=== PATIENT | female | born 1975 | race Caucasian/White ===

== ENCOUNTER → 2016-07-27 | Day surgery (SDC) | payer BC ==
[~2016-07-27] VITALS: Ht 152.4 cm; Wt 94.2 kg
[~2016-07-27] MED LIST: *RESP: ALBUTEROL 2.5 MG/3 ML NEB (PRN) PERIprocedural Use ONLY NEB ONE; *diphenhydrAMINE HCL 50 MG/ML VIAL PERIprocedural Use ONLY ONE; *morphine SULFATE 8 MG/ML PERIprocedure ONLY ONE; ALBI1INJ2; ALBUAER3 INH; AMIT1TAB79 PO; BUPIVACAINE HCL PF 0.25% 30 ML VIAL ONE; BUPIVACAINE LIPOSOME PF 1.3% 20 ML VIAL INFIL ONE; DILA4TAB2 PO; DO NOT ADM ANY ANTICOAGULANT DRUGS XX PRN; DULA10IN SQ; ERGO1CAP10 PO; GABA300C5 PO; GELFOAM SIZE 100 ONE; GENTAMICIN SULFATE 80 MG/2 ML VIAL ONE; HUMA100I3; HUMA75IN SQ; IBUP800T23 PO; INSU1INJ5 SQ; INSULIN HUMAN REGULAR 1,000 UNITS/10 ML VIAL SQ PRN; LACTATED RINGER'S 1000 ML INJ 1,000 ML IV ONE; LACTATED RINGER'S 1000 ML IV SCH; LIDOCAINE 1%/EPINEPHrine 1:100,000 SOLN 20 ML VIAL ONE; METF500T PO; METH500T3; METOPROLOL TARTRATE 25 MG TAB PO PRN; MIDAZOLAM HCL 2 MG/2 ML VIAL ONE; MORPHINE SULFATE 4 MG/ML INJ ONE; NEOSTIGMINE 3 MG/3 ML SYR IV ONE; ONDA4TAB7 SL; ONDANSETRON HCL 4 MG/2 ML VIAL IV PUSH ONE; ONDANSETRON HCL 4 MG/2 ML VIAL ONE; PHENYLEPH/NS 1000 MCG/10 ML SYR IV ONE; PROPOFOL 200 MG/20 ML AMP IV ONE; ROBA500T PO; SIMV5TAB3 PO; SODIUM CHLORID 0.9% 500 ML IV SCH; THROMBIN (TOPICAL) 5,000 UNIT VIAL ONE; ceFAZolin 2 GM PREMIX 50 ML ONE; ceFAZolin INJ 1,000 MG VIAL IV ONE; ePHEDrine/NS 25 MG/5 ML SYR IV ONE; fentaNYL CITRATE 250 MCG/5 ML AMP ONE
[2016-07-27 06:55] VITALS: BP 123/86; PULSE 106; RESP 20; TEMP 98.2; O2SAT 97
--- NOTE | 2016-07-27 08:23 | RADRPT ---
EXAM DATE/TIME: 07/27/2016 07:49 [facility] COMPARISON: No previous studies available for comparison. INDICATIONS : Pre-op back surgery. Evaluate for pneumonia, pneumothorax, and communicable diseases. MEDICAL HISTORY : None. SURGICAL HISTORY : Back surgery. ENCOUNTER: Initial ACUITY: 1 day PAIN SCORE: 0/10 LOCATION: Bilateral chest FINDINGS: A single view of the chest demonstrates linear atelectatic changes the right perihilar distribution. Lungs are otherwise clear. No effusions. Accounting for low lung findings, heart size is normal. Dege nerative spurring in the dorsal spine. Osseous structures are otherwise intact. CONCLUSION: 1. Linear atelectasis in the right perihilar distribution. 2. Otherwise negative. Lukas Ellis MD on July 27, 2016 at 8:20 Board Certified Radiologist. This report was verified electronically.
--- NOTE | 2016-07-27 09:59 | EKG ---
Date Performed: 07/27/2016 Time Performed: 07:48:00 PTAGE: 41 years EKG: SINUS TACHYCARDIA NONSPECIFIC T-WAVE ABNORMALITY ABNORMAL RHYTHM ECG NO PREVIOUS TRACING DOCTOR: Vicente William Interpretating Date/Time 07/27/2016 09:57:48
--- NOTE | 2016-07-27 14:53 | RADRPT ---
EXAM DATE/TIME: 07/27/2016 09:13 [facility] COMPARISON: SPINE LUMBAR LATERAL ONLY, April 26, 2016, 15:35. INDICATIONS : L5-S1 laminectomy, lower back pain. MEDICAL HISTORY : None. SURGICAL HISTORY : None. ENCOUNTER: Initial ACUITY: 1 day PAIN SCORE: Non-responsive. LOCATION: lower back FINDINGS: Lateral views of the lumbar spine were performed intraoperatively. The hardware is noted posteriorly at what appears to be the L4-5 level. The L5 vertebral body appears sacralized. CONCLUSION: Hardware identified posteriorly at what appears to be the L4-5 level. There appears to be sacralizat ion of the L5 vertebral body on this limited view. Van Georges MD on July 27, 2016 at 14:41 Board Certified Radiologist. This report was verified electronically.
[2016-07-27 17:00] VITALS: BP 121/75; PULSE 108; RESP 20; TEMP 97.5; O2SAT 94
--- NOTE | 2016-07-27 19:03 | PD.OP ---
Operative Report Date of Surgery: Jul 27, 2016 Preoperative Diagnosis: (1) Herniated nucleus pulposus, lumbar (2) Lumbar radiculopathy 1. Large recurrent central to left L5-S1 herniated nucleus pulposus associated with large posterior osteophytic disc complex 2. Left lumbar radiculopathy Postoperative Diagnosis: (1) Herniated nucleus pulposus, lumbar (2) Lumbar radiculopathy 1. Large recurrent central to left L5-S1 herniated nucleus pulposus associated with large posterior osteophytic disc complex 2. Left lumbar radiculopathy Procedure: 1. Left L5-S1 revision semi- laminectomy, discectomy, resection large recurrent sequestered herniated nucleus pulposis and posterior osteophyte disc complex. 2. Use of microscope for high-powered intraoperative magnification for dissection of disc herniation and lysis of adhesions. Anesthesia: Gen. endotracheal Surgeon: Vikram Donahue Statistical Methods Teacher(s): May Hernandez Operation and Findings: Findings: Large sequestered recurrent herniated nucleus pulposus extending caudal to the L5-S1 intervertebral disc space. Extensive calcified posterior osteophytic disc complexes with significant ventral thecal sac and exiting nerve compression. Procedure in detail: The patient was brought into the operating room and general endotracheal anesthesia induced without difficulty. Knee-high sequential compression devices were placed. Lines were established by Anesthesia The patient was placed in prone position on the concentric José Luis table with the side bolsters and all extremities appropriately padded Appropriate time-out procedure was performed with all personal present and in agreement The lumbar region was shaved with clippers and sterilely prepped and draped. 1% Xylocaine with epinephrine was used for local infiltration over the incision site which was made just to the left of midline at the L5-S1 level. The incision was carried sharply down to the lumbodorsal fascia which was incised just adjacent to the spinous processes. Woods elevator was used for subperiosteal elevation of paraspinous musculature and fascia away from the lamina and spinous process The deep self-retaining retractor was placed. The appropriate level was verified with intraoperative C-arm. The microscope was moved into place and used for the remainder of the procedure including the closure. The TPS drill with the 5 mm bone bur followed by the 3 mm Kerrison rongeur was used to remove an additional portion of the inferior aspect of the most cephalad lamina and a small amount of the superior aspect of the most caudal lamina along with a small amount of the medial facet sufficient to gain access to the normal dural border and lateral recess without significant nerve root or thecal sac retraction. The residual ligamentum flavum along with moderate amount of epidural scar tissue and adhesions was freed up with the thin ligament dissector and was elevated away from the thecal sac and resected with the Kerrison rongeur which was also used to further remove residual ligament along the lateral recess. The exiting left S1 nerve root was traced down to the medial aspect of the inferior pedicle and traced back to the exit from the thecal sac. The thecal sac and exiting nerve root were then retracted gently medially revealing the underlying disc and annulus. The patient was noted to have a prominent subannular herniated nucleus pulposus as well as a large sequestered fragment extending caudal to the L5-S1 interspace , which were significantly impinging on the overlying exiting nerve root and thecal sac. The disc and annulus were incised with the 11 blade knife and discectomy performed with the pituitary biopsy forceps and the straight and angled curettes. Any loose pieces of disc material in the intervertebral disc space were carefully removed. This allowed a fairly extensive partially calcified posterior subannular disc herniation to be pushed down away from the ventral thecal sac and further removed with the pituitary biopsy forceps. The neural structures appeared well decompressed at the end of the procedure. Bleeding was carefully controlled with bone wax for the bone bleeding and bipolar forceps. There is no significant bleeding time of closure. No cerebrospinal fluid leakage was encountered. The closure was performed with 0 Vicryl interrupted for the deep and superficial fascia, with 3-0 Vicryl interrupted for the subcutaneous closure, and 4-0 Vicryl running for the subcuticular closure. The dressing of sterile Mastisol, Steri-Strips, and Primapore dressing was applied. The patient was taken to recovery room in stable condition. All counts were correct at the end of the case. No specimen was sent to pathology. Estimated blood loss was 100 cc . Vikram Donahue MD Jul 27, 2016 19:03
== END | disposition home or self-care (01) ==
LOC: HSDC 05:58
PROVIDERS: ATTEND Neurological Surgery
DX: M51.17 Intervertebral disc disorders with radiculopathy, lumbosacral region (principal); M25.78 Osteophyte, vertebrae; J45.909 Unspecified asthma, uncomplicated; R94.31 Abnormal electrocardiogram [ECG] [EKG]; E11.9 Type 2 diabetes mellitus without complications
CPT/HCPCS: 00630; 63042; 71010; 72020; 76000; 82948; 93005; C9290; J0690; J1200; J1580; J1815; J2250; J2270; J2370; J2405; J2710; J3010; J7120; J7613

== ENCOUNTER 2017-01-04 23:19 | Emergency (ER) | payer BC, OTHER ==
[~2017-01-04] VITALS: Ht 152.4 cm; Wt 93.0 kg
[~2017-01-04 23:19] MED LIST changes: -*RESP: ALBUTEROL 2.5 MG/3 ML NEB (PRN) PERIprocedural Use ONLY NEB ONE; -*diphenhydrAMINE HCL 50 MG/ML VIAL PERIprocedural Use ONLY ONE; -*morphine SULFATE 8 MG/ML PERIprocedure ONLY ONE; -ALBI1INJ2; -AMIT1TAB79 PO; +AMIT25TA9 PO; -BUPIVACAINE HCL PF 0.25% 30 ML VIAL ONE; -BUPIVACAINE LIPOSOME PF 1.3% 20 ML VIAL INFIL ONE; -DILA4TAB2 PO; -DO NOT ADM ANY ANTICOAGULANT DRUGS XX PRN; -ERGO1CAP10 PO; -GABA300C5 PO; -GELFOAM SIZE 100 ONE; -GENTAMICIN SULFATE 80 MG/2 ML VIAL ONE; -INSULIN HUMAN REGULAR 1,000 UNITS/10 ML VIAL SQ PRN; -LACTATED RINGER'S 1000 ML INJ 1,000 ML IV ONE; -LACTATED RINGER'S 1000 ML IV SCH; -LIDOCAINE 1%/EPINEPHrine 1:100,000 SOLN 20 ML VIAL ONE; -METH500T3; -METOPROLOL TARTRATE 25 MG TAB PO PRN; -MIDAZOLAM HCL 2 MG/2 ML VIAL ONE; -MORPHINE SULFATE 4 MG/ML INJ ONE; -NEOSTIGMINE 3 MG/3 ML SYR IV ONE; -ONDA4TAB7 SL; -ONDANSETRON HCL 4 MG/2 ML VIAL IV PUSH ONE; -ONDANSETRON HCL 4 MG/2 ML VIAL ONE; -PHENYLEPH/NS 1000 MCG/10 ML SYR IV ONE; -PROPOFOL 200 MG/20 ML AMP IV ONE; -ROBA500T PO; -SIMV5TAB3 PO; -SODIUM CHLORID 0.9% 500 ML IV SCH; -THROMBIN (TOPICAL) 5,000 UNIT VIAL ONE; -ceFAZolin 2 GM PREMIX 50 ML ONE; -ceFAZolin INJ 1,000 MG VIAL IV ONE; -ePHEDrine/NS 25 MG/5 ML SYR IV ONE; -fentaNYL CITRATE 250 MCG/5 ML AMP ONE
[2017-01-04 23:21] VITALS: BP 147/78; PULSE 103; RESP 24; TEMP 99; O2SAT 98
[2017-01-05] MEDS ORDERED: ZOCO40TA PO (00:37)
[2017-01-05] MEDS ORDERED: MONT10TA2 PO (00:37)
[2017-01-05] MEDS ORDERED: methylPREDNISolone SOD SUCC 125 MG/2 ML VIAL IVP ONE (01:00)
[2017-01-05] MEDS ORDERED: ONDANSETRON HCL 4 MG/2 ML VIAL IV ONE (01:00)
[2017-01-05] MEDS ORDERED: SODIUM CHLOR 0.9% 1000 ML INJ 1,000 ML IV ONE (01:00)
[2017-01-05] MEDS ORDERED: LEVOFLOXACIN 750 MG PREMIX INJ 150 ML IV ONE (01:00)
[2017-01-05 01:14] VITALS: RESP 20; O2SAT 98
--- NOTE | 2017-01-05 01:16 | PD ---
HPI Chief Complaint: Respiratory Symptoms Time Seen by Provider: 00:36 Travel History International Travel<30 days: No Contact w/Intl Traveler<30days: No Traveled to known affect area: No History of Present Illness HPI The patient is a 41 year old female who presents to the [facility] emergency department with a history of cough and congestion that she reports began a month ago. She reports that it began with swollen glands in her neck as well. She went to a local urgent care center 3 weeks ago and was diagnosed with an infection and started on antibiotic that she took twice daily. She cannot recall the name of the antibiotic. She was also started on Flovent and an allergy medication. She reports that the symptoms did not improve. She followed up with her primary care physician and was then prescribed a Z-Abdelrahman, prednisone taper, and Pulmicort. The patient reports that she then developed a yeast infection and was seen by her director of casework department. As her symptoms were not improving her director of casework department ordered laboratory studies and a chest x-ray. The chest x-ray showed no acute infiltrate, however her laboratory studies revealed an elevated white count. She was told by her primary care physician that as his symptoms have not improved she should go to the emergency department. The patient reports that she last administered an albuterol nebulizer treatment at 10:30 PM. She reports that she has posttussive emesis associated with her cough. She reports that her cough is intermittently productive of clear to yellow sputum. She reports that she has nausea. She denies having any diarrhea. She denies having any known recent fevers. She has however had chills and sweats. She reports that her last menstrual cycle ended on Tuesday. Otherwise on review of systems, she denies any current chest pain, abdominal pain, dysuria or urinary urgency, however she has had urinary frequency and occasional incontinence related to coughing. She denies having any neurologic symptoms. 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 Asthma: Yes Cancer: No Cardiovascular Problems: No High Cholesterol: Yes Diabetes: Yes Patient Takes Glucophage: Yes Diminished Hearing: No Endocrine: Yes (IDDM) Genitourinary: No Hepatitis: No Hiatal Hernia: No Immune Disorder: No Musculoskeletal: No Neurologic: Yes (BACK PAIN, NEUROPATHY TO BLE) Psychiatric: No Reproductive: No Respiratory: Yes (Asthma,) Immunizations Current: No Thyroid Disease: No Tetanus Vaccination: < 5 Years ?: Not LMP: 01/02 Past Surgical History Narrative Surgical The patient's past surgical history is significant for lumbar spine surgery 2, appendectomy, cholecystectomy. Abdominal Surgery: Yes (APPY, LAP. ERIKA) AICD: No Appendectomy: Yes Body Medical Devices: NONE Cardiac Surgery: No Cholecystectomy: Yes Ear Surgery: No Endocrine Surgery: No Eye Surgery: No Genitourinary Surgery: No Gynecologic Surgery: No Hysterectomy: No Joint Replacement: No Neurologic Surgery: Yes (L5-S1 DISCECTOMY) Oral Surgery: Yes (TONSILITIS) Pacemaker: No Thoracic Surgery: No Tonsillectomy: Yes Other Surgery: Yes (Back Sx x2) Social History Alcohol Use: Yes (socially) Tobacco Use: No Substance Use: No Allergies-Medications (Allergen,Severity, Reaction): Coded Allergies: shrimp (Unverified Allergy, Severe, 01/05/17) acetaminophen (Unverified Allergy, Intermediate, 01/05/17) hydrocodone (Unverified Allergy, Intermediate, 01/05/17) grass pollen (Unverified Allergy, Unknown, 01/05/17) shellfish derived (Unverified Allergy, Unknown, 01/05/17) Reported Meds & Prescriptions Reported Meds & Active Scripts Active Reported Zocor (Simvastatin) 40 Mg Tab 40 Mg PO DAILY Singulair (Montelukast Sodium) 10 Mg Tab 10 Mg PO HS Ibuprofen 800 Mg Tab 800 Mg PO Q6HR PRN Trulicity Inj (Dulaglutide Inj) 0.75 Mg/0.5 Ml Pen SQ WEEKLY Humalog Mix 75-25 Kwikpen Pen Inj (Insulin Lispro Protamine-Lispro 75-25 Inj) 300 unit/3 ML Pen 15 Units SQ TID Metformin (Metformin HCl) 500 Mg Tab 500 Mg PO BIDPC With meals Levemir Flextouch Pen Inj (Insulin Detemir) 300 unit/3 ML Pen 25 Units SQ HS Proair Hfa 8.5 GM Inh (Albuterol Sulfate) 90 Mcg/Act Aer 2 Puff INH Q4-6H PRN 108 mcg/actuation Review of Systems Except as stated in HPI: all other systems reviewed are Neg General / Constitutional: No: Fever Eyes: No: Visual changes HENT: Positive: Congestion, Earache, No: Headaches Cardiovascular: Positive: Chest Pain or Discomfort (intermittent chest tightness), Dyspnea on exertion Respiratory: Positive: Cough, Shortness of Breath Gastrointestinal: Positive: Nausea, Vomiting, No: Abdominal Pain Genitourinary: Positive: Frequency, Incontinence, No: Dysuria Musculoskeletal: No: Pain Skin: No Rash Neurologic: Positive: Weakness (generalized fatigue and weakness), No: Focal Abnormalities, Change in Mentation, Slurred Speech, Sensory Disturbance Psychiatric: No: Depression Endocrine: No: Polydipsia Hematologic/Lymphatic: No: Easy Bruising Physical Exam Narrative General: The patient is a well-developed well-nourished female in no acute distress. Head and Neck exam: Head is normocephalic atraumatic. Eyes: EOMI, pupils are equal round and reactive to light. Nose: Midline septum with pink mucous membranes Tympanic membranes bilaterally are pearly with a good cone of light, no erythema or exudate. Mouth: Dentition unremarkable. Moist mucus membranes. Posterior oropharynx is mildly erythematous without exudates. No tonsillar hypertrophy. Uvula midline. Airway patent. Neck: No palpable lymphadenopathy. No nuchal rigidity. No thyromegaly. No spinous process tenderness to palpation. Cardiovascular: Sinus tachycardia in the low 100 without murmurs, gallops, or rubs. No pulse deficits to the extremities on simultaneous auscultation and palpation of her radial artery Lungs: Clear to auscultation bilaterally. No wheezes, rhonchi, or rales. She has a frequent dry sounding cough on examination. Abdomen: Soft, without tenderness to palpation in all 4 quadrants of the abdomen. No guarding, rebound, or rigidity. Normal bowel sounds are audible. No tenderness on palpation of McBurney's point. Extremities: No clubbing, cyanosis, or edema. 2+ pulses in all 4 extremities. Back: No spinous process tenderness to palpation. No costovertebral angle tenderness to palpation. Neurologic Exam: Grossly nonfocal. Skin Exam: No rash noted. Intact skin that is warm and dry. Data Data Last Documented VS Vital Signs Date Time Temp Pulse Resp B/P (MAP) Pulse Ox O2 Delivery O2 Flow Rate FiO2 01/05/17 02:30 85 20 130/79 (96) 99 Room Air 01/04/17 23:21 99.0 Orders Orders Electrocardiogram (01/05/17 00:56) Complete Blood Count With Diff (01/05/17 00:56) Comprehensive Metabolic Panel (01/05/17 00:56) Creatine Kinase (Cpk) (01/05/17 00:56) Ckmb (Isoenzyme) Profile (01/05/17 00:56) Troponin I (01/05/17 00:56) B-Type Natriuretic Peptide (01/05/17 00:56) Blood Culture (01/05/17 00:56) Lipase (01/05/17 00:56) Urinalysis - C+S If Indicated (01/05/17 00:56) D-Dimer (01/05/17 00:56) Chest, Single Ap (01/05/17 00:56) Iv Access Insert/Monitor (01/05/17 00:56) Ecg Monitoring (01/05/17 00:56) Oximetry (01/05/17 00:56) Lactic Acid Sepsis Protocol (01/05/17 00:56) Ed Urine Pregnancytest Poc (01/05/17 00:56) Methylprednisolone So Succ Inj (Solumedr (01/05/17 01:00) Levofloxacin 750 Mg Premix Inj (Levaquin (01/05/17 01:00) Sodium Chlor 0.9% 1000 Ml Inj (Ns 1000 M (01/05/17 01:00) Ondansetron Inj (Zofran Inj) (01/05/17 01:00) CKMB (01/05/17 01:05) CKMB% (01/05/17 01:05) Labs Laboratory Tests Test 01/05/17 01:00 01/05/17 01:05 Urine Color YELLOW Urine Turbidity CLEAR Urine pH 5.5 Urine Specific [place] 1.040 Urine Protein TRACE mg/dL Urine Glucose (UA) 1000 mg/dL Urine Ketones TRACE mg/dL Urine Occult Blood SMALL Urine Nitrite NEG Urine Bilirubin NEG Urine Urobilinogen LESS THAN 2.0 MG/DL Urine Leukocyte Esterase NEG Urine RBC 2 /hpf Urine WBC 2 /hpf Urine Squamous Epithelial Cells 2 /hpf Microscopic Urinalysis Comment CULT NOT INDICATED White Blood Count 14.9 TH/MM3 Red Blood Count 5.65 MIL/MM3 Hemoglobin 16.2 GM/DL Hematocrit 48.3 % Mean Corpuscular Volume 85.5 FL Mean Corpuscular Hemoglobin 28.6 PG Mean Corpuscular Hemoglobin Concent 33.5 % Red Cell Distribution Width 15.0 % Platelet Count 287 TH/MM3 Mean Platelet Volume 9.1 FL Neutrophils (%) (Auto) 58.8 % Lymphocytes (%) (Auto) 34.1 % Monocytes (%) (Auto) 6.0 % Eosinophils (%) (Auto) 0.6 % Basophils (%) (Auto) 0.5 % Neutrophils # (Auto) 8.8 TH/MM3 Lymphocytes # (Auto) 5.1 TH/MM3 Monocytes # (Auto) 0.9 TH/MM3 Eosinophils # (Auto) 0.1 TH/MM3 Basophils # (Auto) 0.1 TH/MM3 CBC Comment DIFF FINAL Differential Comment D-Dimer Quantitative (PE/DVT) 0.24 MG/L FEU Blood Urea Nitrogen 13 MG/DL Creatinine 0.84 MG/DL Random Glucose 200 MG/DL Total Protein 8.7 GM/DL Albumin 3.9 GM/DL Calcium Level 9.8 MG/DL Alkaline Phosphatase 161 U/L Aspartate Amino Transf (AST/SGOT) 25 U/L Alanine Aminotransferase (ALT/SGPT) 51 U/L Total Bilirubin 0.4 MG/DL Sodium Level 139 MEQ/L Potassium Level 3.8 MEQ/L Chloride Level 104 MEQ/L Carbon Dioxide Level 24.7 MEQ/L Anion Gap 10 MEQ/L Estimat Glomerular Filtration Rate 75 ML/MIN Lactic Acid Level 1.6 mmol/L Total Creatine Kinase 117 U/L Creatine Kinase MB 0.6 NG/ML Troponin I LESS THAN 0.02 NG/ML B-Type Natriuretic Peptide 7 PG/ML Lipase 234 U/L MDM Medical Decision Making Medical Screen Exam Complete: Yes Emergency Medical Condition: Yes Medical Record Reviewed: Yes Interpretation(s) Last Impressions Chest X-Ray 01/05/17 0056 Signed Impressions: Service Date/Time: Thursday, January 05, 2017 01:03 - CONCLUSION: No acute cardiopulmonary abnormality is identified. Bryan Granado MD Differential Diagnosis Asthma exacerbation, versus allergy related asthma exacerbation, versus pneumonia, versus pulmonary embolism, versus congestive heart failure Narrative Course During the course of the patients emergency department visit, the patients history, examination, and differential diagnosis were reviewed with the patient. The patient had IV access obtained and blood work sent for analysis. The patient was placed on a animal bounty hunter with oximetry and blood pressure monitoring. An ECG was done on arrival. The patient's ECG reveals a sinus rhythm heart rate of 85, nonspecific T-wave abnormalities, T waves are inverted in lead 3, no acute ST segment elevation. T waves are inverted in aVF. QRS duration is 85 ms, QTC 401 ms. The patient was initially provided normal saline 1 L IV fluid bolus, Levaquin 750 mg IV 1, Zofran 4 mg IV for nausea, Solu-Medrol 125 mg IV. The patients laboratory studies were reviewed and remarkable for a white count of 14.9, hemoglobin 16.2, platelets 287 with a normal differential, and, CMP is remarkable for a GFR 75, glucose 200, alkaline phosphatase 161, CPK 117, troponin I less than 0.02, BNP is 7, lipase 234, lactic acid 1.6. D-dimer is 0.24 decreasing the likelihood of pulmonary embolism in this patient with no other significant risk factors. Urinalysis shows concentrated urine thousand Leukos trace ketones, small occult blood. Radiology studies were reviewed and remarkable for a chest x-ray that shows no acute cardiopulmonary abnormality. The patient will be discharged home to follow-up with the dx board operator as previously scheduled. The patient will be given a prescription for Medrol Dosepak taper, Levaquin to be completed over the next 7 days. The patient is resting comfortably and feels better, is alert and in no distress. The patients results and examination findings were discussed with the patient. The repeat examination is unremarkable and benign. The history, exam, diagnostic testing, and current condition do not suggest any significant pathology to warrant further testing, continued ED treatment, admission, or surgical evaluation at this point. The vital signs have been stable. The patient does not have uncontrollable pain, intractable vomiting, or other significant symptoms. The patient's condition is stable and appropriate for discharge. The patient will pursue further outpatient evaluation with a primary care physician or other designated or consulting physician as indicated in the discharge instructions. The patient expressed understanding and was agreeable with this plan. Diagnosis Primary Impression: Bronchitis Additional Impression: Asthma exacerbation Referrals: Primary Care Physician 2 days Repair Welder 1 week Patient Instructions: Acute Bronchitis (ED), Asthma (ED), General Instructions Med/Other Pt SpecificInfo: Prescription(s) given Scripts Promethazine (Phenergan) 25 Mg Tablet 25 MG PO Q8HR Y for NAUSEA OR VOMITING for 7 Days, TAB 0 Refills Prov: Amelia Platt MD 01/05/17 Levofloxacin (Levaquin) 500 Mg Tablet 500 MG PO DAILY for Infection for 7 Days, TAB 0 Refills Prov: Amelia Platt MD 01/05/17 Methylprednisolone Dosepak (Medrol Dosepak) 4 Mg Dspk 4 MG PO DIRECTED, #1 DSPK 0 Refills Per Pharmacist direction Prov: Amelia Platt MD 01/05/17 Disposition: 01 DISCHARGE HOME Condition: Stable Amelia Platt MD Jan 05, 2017 01:16
--- NOTE | 2017-01-05 01:27 | RADRPT ---
EXAM DATE/TIME: 01/05/2017 01:03 [facility] COMPARISON: CHEST SINGLE AP, July 27, 2016, 7:49. INDICATIONS : Shortness of breath. MEDICAL HISTORY : None. SURGICAL HISTORY : None. ENCOUNTER: Initial ACUITY: 1 day PAIN SCORE: 0/10 LOCATION: Bilateral chest FINDINGS: Portable AP view of the chest demonstrates a normal-sized cardiac silhouette. No effusion, consolidat ion, or pneumothorax is visualized. The bones and soft tissues demonstrate no acute abnormality. Lung s are mildly underinflated with atelectasis at the bases. CONCLUSION: No acute cardiopulmonary abnormality is identified. Bryan Granado MD on January 05, 2017 at 1:26 Board Certified Radiologist. This report was verified electronically.
[2017-01-05 01:28] VITALS: BP 145/79; PULSE 91; RESP 20; O2SAT 98
[2017-01-05 01:36] LABS: AUTOMATED NEUTROPHIL # 8.8 TH/MM3 (1.8-7.7); BASOPHIL # 0.1 TH/MM3 (0-0.2); BASOPHIL % 0.5 % (0.0-2.0); EOSINOPHIL # 0.1 TH/MM3 (0-0.4); EOSINOPHIL % 0.6 % (0.0-4.0); HEMATOCRIT 48.3 % (35.0-46.0); HEMO FLAGS DIFF FINAL; LYMPH % 34.1 % (9.0-44.0); LYMPHOCYTE # 5.1 TH/MM3 (1.0-4.8); MEAN CELL VOLUME 85.5 FL (80.0-100.0); MEAN CORPUSCULAR HEMOGLOBIN 28.6 PG (27.0-34.0); MEAN CORPUSCULAR HGB CONC 33.5 % (32.0-36.0); NEUT % 58.8 % (16.0-70.0); PLATELET COUNT 287 TH/MM3 (150-450); RED BLOOD COUNT 5.65 MIL/MM3 (4.00-5.30); WHITE BLOOD COUNT 14.9 TH/MM3 (4.0-11.0)
[2017-01-05 01:46] LABS: BLOOD, URINE SMALL (NEG); COMMENT (UR) CULT NOT INDICATED; CULTURE IF INDICATED CULT NOT INDICATED; GLUCOSE,URINE 1000 mg/dL (NEG); KETONE, URINE TRACE mg/dL (NEG); NITRITE,URINE NEG (NEG); PH, URINE 5.5 (5.0-8.5); SQUAMOUS EPITHELIAL CELL URINE 2 /hpf (0-5); URINE COLOR YELLOW (YELLW/STRAW)
[2017-01-05 01:55] LABS: ALKALINE PHOSPHATASE 161 U/L (45-117); ALT (GPT) 51 U/L (10-53); ANION GAP 10 MEQ/L (5-15); AST (GOT) 25 U/L (15-37); BICARBONATE 24.7 MEQ/L (21.0-32.0); BLOOD UREA NITROGEN 13 MG/DL (7-18); CHLORIDE 104 MEQ/L (98-107); CREATINE KINASE 117 U/L (26-192); GLOMERULAR FILTRATION RATE 75 ML/MIN (>89); POTASSIUM 3.8 MEQ/L (3.5-5.1); SODIUM (NA) 139 MEQ/L (136-145); TOTAL BILIRUBIN ADULT 0.4 MG/DL (0.2-1.0)
[2017-01-05 02:08] LABS: CKMB 0.6 NG/ML (0.5-3.6)
[2017-01-05 02:30] VITALS: BP 130/79; PULSE 85; RESP 20; O2SAT 99
[2017-01-05] MEDS ORDERED: PROM25TA10 PO (03:08)
[2017-01-05] MEDS ORDERED: LEVA500T20 PO (03:08)
[2017-01-05] MEDS ORDERED: MEDR4PAK PO (03:08)
[2017-01-05 03:17] VITALS: BP 141/74; TEMP 98.7
--- NOTE | 2017-01-05 17:11 | EKG ---
Date Performed: 01/05/2017 Time Performed: 01:33:51 PTAGE: 41 years EKG: Sinus rhythm NONSPECIFIC T-WAVE ABNORMALITY Compared to previous tracing, the patient is no longer tachycardic EJ RDERLINE ECG PREVIOUS TRACING : 07/27/2016 07.48 DOCTOR: Porsche Love Interpretating Date/Time 01/05/2017 17:05:35
[2017-01-28] MEDS ORDERED: AMIT25TA9 (12:31)
== END 2017-01-05 03:27 | disposition home or self-care (01) ==
LOC: NEPE 23:19
DX: J40 Bronchitis, not specified as acute or chronic (principal); J45.901 Unspecified asthma with (acute) exacerbation; R00.0 Tachycardia, unspecified; R11.0 Nausea; E78.00 Pure hypercholesterolemia, unspecified; E11.40 Type 2 diabetes mellitus with diabetic neuropathy, unspecified; Z79.4 Long term (current) use of insulin; Z79.899 Other long term (current) drug therapy
CPT/HCPCS: 71010; 80053; 81001; 82550; 82552; 83605; 83690; 83880; 84484; 84703; 85025; 85379; 87040; 93005; 96365; 96375; 99285; J1956; J2405; J2930; J7030